=== PATIENT | male | born 1985 | race Caucasian/White ===

== ENCOUNTER 2016-10-08 02:31 | Emergency (ER) | payer OTHER ==
--- NOTE | ~2016-10-08 | CT2 ---
[facility] A Service [facility] RADIOLOGY TEXT RESULTS PATIENT: KEITH BRENNAN LOCATION: [facility] : 81 UNIT #: [id number] AGE: [address]: Zachary Leyva MD SEX: M ORDER DR: [id number] [facility] [address]. [place], [place] [address] [id number] MR#: [id number] Acc #: [id number] NAME: KEITH BRENNAN : 1985 SEX: M STUDY DATE/TIME: 10/08/2016 3:31 UNIT: [facility] ROOM: STUDY DESCRIPTION: CT Abd and Pelv W Cont Attending Physician: Zachary Leyva M.D. Ordering Physician: Zachary Leyva M.D. Primary Care Physician: Adin Farrell M.D. MEDICAL IMAGING REPORT This report is preliminary unless electronic signature is present EXAM CT abdomen and pelvis with contrast DATE 10/08/2016 HISTORY 31-year-old male with right lower quadrant abdominal pain which began 2 hours ago. History of kidney stones. COMPARISON CT abdomen without contrast 10/06/2008 PROCEDURE 5 mm axial images from the lung bases to the lesser trochanters after intravenous contrast administration. Enteric contrast was administered. Sagittal and coronal reformatted images were obtained. This CT exam was performed with one or more of the following radiation dose reduction techniques: automatic exposure control, adjustment of mA and/or kV according to patient size, and iterative reconstruction. FINDINGS Abdomen findings: A 2 mm stone is seen within the distal third of the right ureter just above the ureter vesicle junction resulting in mild right hydronephrosis and mild right hydroureter. Lung bases are free of consolidation. The liver, gallbladder, spleen, pancreas and adrenal glands are normal. The appendix is normal. The bowel appears nonthickened and noninflamed. Pelvis findings: Urinary bladder, prostate and rectum are normal. No acute osseous abnormalities are identified. [facility] A Service [facility] RADIOLOGY TEXT RESULTS PATIENT: KEITH BRENNAN LOCATION: [facility] : 81 UNIT #: [id number] AGE: [address]: Zachary Leyva MD SEX: M ORDER DR: IMPRESSION 1. 2 mm stone in the distal third of the right ureter just above the ureter vesicle junction results in mild right hydronephrosis and hydroureter. 2. The appendix is normal. Dictated by... Johnna Echevreria M.D. THIS IS AN ELECTRONICALLY VERIFIED REPORT Johnna Echeverria M.D. at 10/09/2016 12:10 AM [facility]/to TD: 10/08/2016 12:20 JOB #: [id number] MEDICAL IMAGING REPORT COPY
[2016-10-08 01:53] LABS: BASOPHIL# 0.1 X10e3 (0-0.3); BASOPHIL% 0.7 % (0-2.5); EOSINOPHIL# 0.4 X10e3 (0-0.7); EOSINOPHIL% 3.1 % (0.0-7.0); HEMOGLOBIN 15.7 gm/dL (13.0-16.0); LYMPHOCYTE# 4.8 X10e3 (1.0-3.5); LYMPHOCYTE% 40.4 % (17.0-45.0); MEAN CELL VOLUME 85.9 FL (83-96); MEAN CORPUSCULAR HEMOGLOBIN 29.3 PG (28-34); MEAN CORPUSCULAR HGB CONC 34.1 g/dL (30-36); MEAN PLATELET VOLUME 8.6 FL (6.5-11.5); MONOCYTE# 1.6 X10e3 (0-1.0); MONOCYTE% 13.7 % (3.0-12.0); NEUTROPHIL% 42.1 % (40-75); PLATELET COUNT 355 X10e3 (140-420); RED BLOOD COUNT 5.35 X10e (3.90-5.60); RED CELL DISTRIBUTION WIDTH 13.5 % (11.0-15.5); WHITE BLOOD COUNT 11.9 X10e3 (4.0-10.5)
[2016-10-08 01:54] LABS: DIFF IND NO
[2016-10-08 02:19] LABS: ALBUMIN SERUM 4.4 g/dL (3.5-5.0); ALKALINE PHOSPHATASE 57 U/L (32-92); ALT (SGPT) 44 U/L (10-40); AMYLASE 16 U/L (0-46); AST (SGOT) 26 U/L (10-42); BILIRUBIN, DIRECT 0.1 mg/dL (0.0-0.2); BILIRUBIN,INDIRECT 0.5 mg/dL (0.0-0.9); BILIRUBIN,TOTAL 0.6 mg/dL (0.2-2.0); BLOOD UREA NITROGEN 17 mg/dL (9-23); BUN/CREATININE RATIO 15.45; CALCIUM SERUM 9.7 mg/dL (8.4-10.2); CARBON DIOXIDE 27 mmol/L (22-31); CHLORIDE 101 mmol/L (100-111); CREATININE SERUM 1.1 mg/dL (0.6-1.4); GLOM FILT RATE Estimated ABOVE60 mL/min (>60); GLUCOSE FASTING 87 mg/dL (70-110); LIPASE 25 U/L (22-51); POTASSIUM 3.5 mmol/L (3.5-5.1); PROTEIN TOTAL SERUM 7.4 g/dL (6.0-8.3); SODIUM 138 mmol/L (135-145)
[~2016-10-08 02:31] MED LIST: ACETAMINOPHEN325 MG PO; FLOMAX0.4 MG PO; LISINOPRIL10 MG PO; METOPROLOL TART25 MG PO; NO MEDICATIONS; TYLOX 5/500 CAP1 CAP PO
[2016-10-08 03:37] LABS: URINE SOURCE CLEAN CATCH
[2016-10-08 03:41] LABS: URINE APPEARANCE CLEAR; URINE BILIRUBIN NEG (NEG); URINE BLOOD 3+ (NEG); URINE COLOR YELLOW; URINE GLUCOSE NEG (NEG); URINE KETONE NEG (NEG); URINE LEUKOCYTE ESTERASE NEG (NEG); URINE NITRATE NEG (NEG); URINE PH 5.5 (5-8); URINE PROTEIN TRACE (NEG); URINE SPECIFIC GRAVITY 1.026 (1.003-1.035)
[2016-10-08 03:45] LABS: URBCS1 AUWI 100-200 /[HPF] (0-2); URINE BACTERIA AUWI NEG (NEGATIVE); URINE SQUAMOUS EPITHELIAL CELL NONE SEEN /[HPF]; UWBCS1 AUWI 0-2 (0-5)
[2016-10-08 03:53] LABS: CULTURE INDICATED? NO; URINE YEAST PRESENT
== END 2016-10-08 04:26 | disposition home or self-care (01) ==
LOC: CED 02:31
PROVIDERS: Emergency Medicine
DX: N13.2 Hydronephrosis with renal and ureteral calculous obstruction (principal); I10 Essential (primary) hypertension; Z88.8 Allergy status to other drugs, medicaments and biological substances
CPT/HCPCS: 36415; 74177; 80048; 80076; 81003; 82150; 83690; 85025; 96361; 96374; 96375; 99284; J2270; J2405; Q9967